=== PATIENT | female | born 1955 | race Caucasian/White ===

== ENCOUNTER → 2024-01-04 08:36 | Outpatient (REF) | payer MEDICARE, SELFPAY | LOC: WOUND 08:36 | PROVIDERS: ATTENDING PHYSICIAN Surgery; FAMILY PHYSICIAN Family Medicine | DX: T81.31XA Disruption of external operation (surgical) wound, not elsewhere classified, initial encounter (principal); S11.90XA Unspecified open wound of unspecified part of neck, initial encounter; Y83.8 Other surgical procedures as the cause of abnormal reaction of the patient, or of later complication, without mention of misadventure at the time of the procedure; X58.XXXA Exposure to other specified factors, initial encounter | CPT/HCPCS: 99203 ==

== ENCOUNTER 2024-01-08 06:29 | Inpatient (IN) | payer MEDICARE, SELFPAY ==
[2024-01-08] VITALS (13 sets, daily range): BP systolic 0–157; BP diastolic 71–96; BMI 31.7
[2024-01-08] MEDS: NORMOSOL-R 1000 IV (09:32)
--- NOTE | 2024-01-08 11:14 | W.SUR.PREOP ---
Pre-Operative Surgical Note
-
I have examined this patient prior to the performance of the scheduled procedure.
The patient's condition is unchanged from the time of the current History and
Physical and the patient is able to undergo the scheduled procedure.
[2024-01-08] MEDS: DILAUDID 0.25 MG IV (13:54)
--- NOTE | 2024-01-08 14:52 | CON.ID ---
Consultation
-
Date/Time Consultation Requested: 01/08/2024 1450
Date/Time Consultation Performed: 01/08/2024 1455
Requesting Provider: Dr. Yuliet Ferrer
Performing Provider: Dr. Magaly Pitt
Reason for Consultation: Cervical fusion wound dehiscence with exposed HW
Chief Complaint / Past History
Chief Complaint
Wound dehiscence.
History of Present Illness
68 year old female with herniated disc who underwent C3/4, C4/5, C/6 posterior cervical laminectomy fusion with hardware about 6 weeks ago at [place]. About 2 weeks ago, she felt a lump at the back of her neck. No pain. On Sunday12/28/23, the
incision opened with about 30 cc bloody drainage. The opening was about pea-size. She was immediately placed on Bactrim. The site continued to drain bloody fluid. The [facility] who packed the wound and referred her
to Plastics for closure. Today she was electively admitted and underwent debridement followed by muscle flap coverage. Per Dr. Ferrer, hardware was exposed at wound base; no pus or necrosis. She has been on Bactrim until yesterday. No fevers or
chills. She feels well overall.
Past History
Past Medical History: None
Additional Past Surgical History:
left TKR
cataract surgery
Allergy History:
No Known Allergies Allergy (Verified 01/08/24 09:15)
Medications Reviewed: Yes
Current Antibiotics:
cefazolin
Social History
Tobacco: Non-Smoker
Alcohol: None
Drug: None
Employment: Retired (OR nurse)
Family History
Family History: Not Pertinent
Review of Systems
Review of Systems
General: Negative Fever, Chills or Change in Appetite
HEENT: Negative Sinus Problems, Headache or Pharyngitis
Cardiovascular: Negative Chest Pain or Dyspnea
Respiratory: Negative Cough
Gasteroenterology: Negative Nausea or Vomiting
Genital / Urological: Negative Dysuria or Flank Pain
Endocrine: Negative Weakness or Fatigue
Skin / Hair / Nails: Negative Rash
Neurological: Negative Headache or Dizziness
All systems: All other systems were reviewed and were negative
Vital Signs
Temp Pulse Resp BP Pulse Ox
97.6 F 79 15 140/81 91
01/08/24 13:25 01/08/24 14:45 01/08/24 14:45 01/08/24 14:30 01/08/24 14:45
Physical Exam
Physical Exam
Constitutional: No Acute Distress and Comfortable
Eyes: No Conjunctival Hemorrhage and Sclera Anicteric
Cardiovascular: Regular Rate and S1/S2
Pulmonary: Clear
Gastrointestinal: Soft and Non Tender
Extremities: Negative Edema
Neurological: AO x 3
Microbiology Results
Micro:
01/08/24 12:30 Tissue Culture - Pending
Bone Gram Stain - Preliminary
01/08/24 12:30 Wound Culture - Pending
Neck Gram Stain - Preliminary
01/08/24 12:30 Anaerobic Culture - Pending
Bone
01/08/24 12:30 Anaerobic Culture - Pending
Neck
Assessment / Plan
# Recent posterior C-spine laminectomy, fusion with hardware 6 weeks ago
# Wound dehiscence 12/27/22 -> placed on Bactrim (12/27 to 01/06)
- 01/07 s/p OR with findings + HW exposed at base, no pus, no necrosis, s/p debridement and muscle flap
OR cultures pending
- Suspect OR cx will be negative as patient has been on Bactrim up until day prior to surgery
No overt infection noted .
Assuming early post-op spine hardware infection, recommend 12 weeks of abx. (4 to 6 weeks IV abx followed by po abx for total of 12 week course).
-Continue cefazolin for now.
--- NOTE | 2024-01-08 15:20 | W.IMMPOSTOP ---
Surgical Immed Post Op Note
-
Primary Surgeon: MILLICENT Ferrer MD
Assisting Surgeon:
Pre-op Diagnosis: Deep posterior cervical wound
Post-op Diagnosis: Same
Procedure Performed: Washout and debridement posterior cervical wound, bilateral paraspinous muscle flaps
Anesthesia Type: General
Specimen / Cultures: Fluid cultures, bone for culture
Estimated Blood Loss: 30 cc
Complications: None
Operative Findings: Exposed hardware
--- NOTE | 2024-01-08 15:20 | OR.RPT ---
Operative Report
Operative Report
Surgeon: MILLICENT Ferrer MD
Preoperative diagnosis: Deep cervical wound after posterior fusion, surgical wound dehiscence
Postoperative diagnosis: Same
Procedure:
1. Excisional debridement to bone, posterior neck, 10 x 5 cm
2. Bilateral paraspinous muscle flaps
Anesthesia: General
Specimens: Fluid for culture, bone for culture
Complications: None
EBL: 30 cc
Indications for procedure: Patient is a 68-year-old female who approximately 46 weeks ago underwent a posterior cervical fusion. A drain was placed and she followed a routine postop course initially. However a few weeks after her surgery she
developed a fluid collection that drained spontaneously. She was left with a draining wound. She was seen in wound care and this was packed. She was referred to me for consultation and further care. She denies fever and no evidence of purulence
at the time. A draining sinus was evident but there was no clearly exposed hardware at the time. A plan was made for operative debridement and flap closure to prevent infection of the underlying hardware. Conversation was had that the hardware
may already be seeded due to the wound dehiscence. IV antibiotics may be required following surgery. She understood these risks and desired to proceed. Risks of my surgery include further scar, hematoma, seroma, recurrent infection, need for
repeat procedure.
Procedure in detail: Patient was identified in the preoperative area and the surgical site was confirmed to be the posterior neck. All questions were answered and consents were confirmed. Patient was taken back to the operating room and placed
prone on the table. Appropriate precautions were taken to protect the patient by anesthesia. The patient's neck was then prepped and draped using Betadine solution in the usual sterile fashion. Timeout for patient safety was performed was
confirmed that bilateral SCDs were in place and preoperative antibiotics have been administered. Procedure began with the injection 1% lidocaine with epinephrine around the prior surgical scar. A 15 blade was used to excise an elliptical pattern
around the prior scar and dehisced wound. The underlying wound was encountered and larger than the draining sinus. No purulence or necrotic debris was found however the tissues appeared edematous due to the chronic seroma. A tract following
deeper and superiorly was found to be in communication with a screw and plate. As such the wound was opened up superiorly and inferiorly to allow for full axis and debridement and irrigation. Deep cultures were taken and sent for aerobic and
anaerobic bacteria. A portion of the inferior spinous process was then resected and sent for culture as it was in the wound bed. 3 L of normal saline were then used to irrigate the wound and vancomycin powder were applied to the exposed hardware.
Following this bilateral paraspinous muscle flaps were elevated to allow for midline imbrication over the hardware. This was done with a selective fascial release superficially. A series of 0 Vicryl sutures were then placed in interrupted
[id number] fashion to allow for imbrication into the wound bed. A drain was then placed superficially and tunneled out. This was sutured in place. Superficial closure was completed by 2-0 Vicryl and Alex's fascia followed by 3-0 deep
dermal sutures. A series of 2-0 nylon's were placed in a vertical mattress fashion in the skin to allow for wound edge eversion. Patient tolerated the procedure well was performed out complication. All counts were correct at the end the case.
She was extubated and taken the PACU for further care
--- NOTE | 2024-01-08 16:56 | PTCARENOTE ---
Patient admitted from pacu post cervical wound debridement with wound closure and muscle flap secondary to a seroma.The patient received general anesthesia.EBL was 20ml.The patient rates her pain at a 2-3 out of 10.The posterior neck dressing is
intact with a scant amount of shadowing.Vital signs are stable.The patient is in her bed with the call reaves in reach.Her is at the bedside.
[2024-01-08] MEDS: TYLENOL 1000 MG PO ×2 (17:37→22:35)
[2024-01-08] MEDS: FLUSH (NSS) 2 FLUSH IV (20:57)
[2024-01-08] MEDS: ANCEF 10 IV (20:57)
[2024-01-09 03:30] VITALS: BP 107/72
[2024-01-09] MEDS: ANCEF 10 IV (03:40)
--- NOTE | 2024-01-09 04:47 | DOWNTIME ---
There was a [employer] Downtime on 01/09/2024 from 0100 to 01/09/2024 at 0439. Downtime documentation of patient's care, including medication administrations, has been reconciled in the electronic record per guidelines. Refer to the
patient's paper chart under the miscellaneous tab to see printed paper medication records and downtime forms.
[2024-01-09] MEDS: TYLENOL 1000 MG PO ×4 (06:21→22:54)
[2024-01-09 07:12] VITALS: BP 121/80
--- NOTE | 2024-01-09 07:49 | W.PN.PLAS ---
Today's Communication
-
Awaiting Cultures
ID consultation
Progress Note
Subjective Data
doing well, pain well-controlled, denies shortness of breath
Subjective: Tolerating Regular Diet and Ambulatory
Objective Data
Vital Signs
Temp Pulse Resp BP Pulse Ox
98.1 F 76 16 107/72 96
01/09/24 03:30 01/09/24 03:30 01/09/24 03:30 01/09/24 03:30 01/09/24 03:30
Intake and Output
01/08/24 01/09/24 01/10/24
06:59 06:59 06:59
Intake Total 460 / 460
Output Total 20 / 20
Balance 440 / 440
Intake:
Oral fluids 360 / 360
IV fluids (Total) 100 / 100
Normosol 100 / 100
IV piggybacks 0 / 0
Output:
Drain Output (Total) 20 / 20
Neck Cristóbal-Allen 20 / 20
Other:
Number of approximated MODERATE 1
amounts of urine
physical exam:
No acute distress
No increased work of breathing
Posterior cervical incision intact with sutures in place and dressing clean and dry
MIGUEL drain serosanguineous with appropriate output
Moving all extremities
Microbiology Results
01/08/24 12:30 Bone Gram Stain - Preliminary
01/08/24 12:30 Neck Gram Stain - Preliminary
Assessment / Plan
status post posterior cervical wound debridement with paraspinous muscle flaps
ID following, cultures negative to date
Discharge following ID recommendations for IV antibiotics
--- NOTE | 2024-01-09 09:39 | W.PN.ID1 ---
Date of Service
Date of Service: January 09, 2024
Today's Communication
Anticipate dc tomorrow if home IV abx set up.
Assessment / Plan
# Recent posterior C-spine laminectomy, fusion with hardware 6 weeks ago.
# Wound dehiscence 12/27/22 ( week 5 post-op) -> placed on Bactrim (12/27 to 01/06)
- 01/07 s/p OR with findings + HW exposed at base, no pus, no necrosis, s/p debridement and muscle flap
OR cultures negative to date, as expected as patient has been on Bactrim up until day prior to surgery
No overt infection noted .
- Assuming early post-op spine hardware infection, recommend 12 weeks of abx.
- Plan for broad-spectrum coverage with Daptomycin 500mg IV q24 and cefepime 2g IV q`12 x 6 weeks followed by another 6 weeks pf po abx, then stop. Pt agreeable to plan.
Infusion sheet submitted to registered nurse hh case manager.
- Ordered PICC.
- Check CK, CBC, CMP in am.
-Anticipate dc home home tomorrow if home IV abx set up.
Chief Complaint
-: Other (Wound dehiscence)
Subjective / Review of Systems
No complaints.
Vital Signs / Physical Exam
Vital Signs
Vital Signs
Temp Pulse Resp BP Pulse Ox
98.6 F 84 17 121/80 97
01/09/24 07:12 01/09/24 07:12 01/09/24 07:12 01/09/24 07:12 01/09/24 07:12
Physical Exam
Constitutional: No Acute Distress and Comfortable
Eyes: Sclera Anicteric
Cardiovascular: Regular Rate and S1/S2
Pulmonary: Clear
Extremities: Negative Edema
Neurological: AO x 3
Objective Data
Lab Data
C-Reactive Protein 19.80 mg/L (0.0-10.00) H 01/09/24 04:46
Most recent labs reviewed.
Micro Results:
01/09/24 09:14 Nasal Screen MRSA (PCR) - Pending
Nose
01/08/24 12:30 Wound Culture - Preliminary
Neck No growth
Gram Stain - Preliminary
01/08/24 12:30 Anaerobic Culture - Preliminary
Bone Culture pending. Anaerobic cultures are examined after 3
days incubation. Additional information to follow.
01/08/24 12:30 Tissue Culture - Preliminary
Bone No Growth After 18-24 Hours
Gram Stain - Preliminary
01/08/24 12:30 Anaerobic Culture - Preliminary
Neck Culture pending. Anaerobic cultures are examined after 3
days incubation. Additional information to follow.
[2024-01-09] MEDS: CUBICIN 10 MG IV (10:22)
[2024-01-09] MEDS: STERILE WATER FOR INJECTION 10 ML IV ×2 (10:22→22:55)
[2024-01-09] MEDS: MAXIPIME 2000 MG IV ×2 (10:22→22:55)
[2024-01-09 11:19] VITALS: BP 131/89
[2024-01-09 15:32] VITALS: BP 113/68
--- NOTE | 2024-01-09 16:17 | CM ---
Reviewed chart, received script for IV ABX. Patient has Medicare. 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
Faxed all paperwork to Anne at [facility].
Plan: Case management will continue to follow and assist with discharge planning. Home tomorrow with IV ABX.
[2024-01-09] MEDS: VALIUM 5 MG PO (17:25)
[2024-01-09] MEDS: FLUSH (NSS) 2 FLUSH IV (22:55)
[2024-01-09 23:03] VITALS: BP 116/67
[2024-01-10 04:59] LABS: % Basophils 0.4 % (0-2); % Eosinophils 0.4 % (0-6); % Immature Granulocytes 0.5 % (0-0.5); % Lymphocytes 23.4 % (20.5-51.1); % Monocytes 6.6 % (1.7-9.3); % Neutrophils 68.7 % (42.2-75.2); Absolute Immature Granulocytes 0.1 10^3/uL (0-0.05); Absolute Lymphocytes 2.3 10^3/uL (1.2-3.4); Absolute Monocytes 0.7 10^3/uL (0.1-0.6); Absolute Neutrophils 6.8 10^3/uL (1.4-6.5); Hemoglobin 11.4 g/dL (12.0-16.0); Mean Corp Hgb Conc. 33.5 g/dL (33.0-37.0); Mean Corpuscular Hgb 31.5 pg (27.0-31.0); Mean Corpuscular Volume 93.9 fL (81.0-99.0); Mean Platelet Volume 9.5 fL (7.4-10.4); Nucleated Red Blood Cells % 0 %; Platelet Count 220 10^3/uL (130-400); Red Blood Cell Count 3.62 10^6/uL (4.20-5.40); Red Cell Dist. Width 13.1 % (11.5-14.5); White Blood Cell Count 9.9 10^3/uL (4.8-10.8)
[2024-01-10 05:16] LABS: ALT (SGPT) 15 U/L (0-35); AST (SGOT) 22 U/L (14-36); Albumin 4.1 g/dl (3.5-5.0); Alkaline Phosphatase 53 U/L (38-126); Blood Urea Nitrogen 14 mg/dl (7-17); Calcium 9.2 mg/dl (8.4-10.2); Carbon Dioxide 29 mmol/L (22-30); Chloride 102 mmol/L (98-107); Creatine Phosphokinase 72 U/L (30-135); Estimated Creatinine Clearance 92 ml/min; Glucose 90 mg/dl (70-99); Potassium 4.2 mmol/L (3.5-5.1); Sodium 136 mmol/L (135-145); Total Bilirubin 0.3 mg/dl (0.2-1.3); Total Protein 6.6 g/dl (6.3-8.2); eGFR > 60.00
[2024-01-10] MEDS: TYLENOL 1000 MG PO ×2 (05:52→11:58)
[2024-01-10] MEDS: VALIUM 5 MG PO (05:52)
[2024-01-10 07:07] VITALS: BP 124/76
--- NOTE | 2024-01-10 09:51 | CM ---
Addendum entered by HENRY Kahn 01/10/24 10:17:
Referral made to [facility].
Original Note:
Placed a call to Anne at [facility] who confirmed that she received referral and that all paperwork has been received. She is connecting with patient's insurance to check benefits.
Anne stated that patient is unable to refuse VN services as if they do not come, their infusion services will cost a copay for each visit. She stated that she will talk to patient. Will send referral to [facility] as patient initially agreed to that
agency yesterday.
Plan: Case management will continue to follow and assist with discharge planning. Home with home infusion and VN services.
--- NOTE | 2024-01-10 09:58 | W.PN.ID1 ---
Date of Service
Date of Service: January 10, 2024
Today's Communication
-Can dc home after am doses of IV abx's and if home IV abx's all set up.
-Follow-up with me in 3 to 4 weeks.
Assessment / Plan
# Recent posterior C-spine laminectomy, fusion with hardware 6 weeks ago.
# Wound dehiscence 12/27/22 ( week 5 post-op) -> was on Bactrim (12/27 to 01/06)
- 01/07 s/p OR with findings + HW exposed at base, no pus, no necrosis, s/p debridement and muscle flap
OR cultures negative to date, as expected since she has been on Bactrim up until day prior to surgery
No overt infection noted .
- Assuming early post-op spine hardware infection, recommend 12 weeks of abx.
-Continue Daptomycin 500mg IV q24 and cefepime 2g IV q`12 x 6 weeks through 02/19/24, followed by another 6 weeks of po abx, then stop.
- Check Weekly CK, CBC, CMP in am.
-Can dc home after am doses of IV abx's and if home IV abx's all set up.
-Follow-up with me in 3 to 4 weeks.
Chief Complaint
-: Other (Wound dehiscence)
Subjective / Review of Systems
Feels well. Looking forward to going home.
Vital Signs / Physical Exam
Vital Signs
Vital Signs
Temp Pulse Resp BP Pulse Ox
98.1 F 80 17 124/76 96
01/10/24 07:07 01/10/24 07:07 01/10/24 07:07 01/10/24 07:07 01/10/24 07:07
Physical Exam
Constitutional: No Acute Distress and Comfortable
Gastrointestinal: Soft, Non Tender and Non Distended
Wound: Other (posterior neck MIGUEL drain serosanguinous output)
Neurological: AO x 3
Lines: PICC (RUE)
Objective Data
Lab Data
Lab Results
01/10/24 04:32
01/10/24 04:32
Estimated Creat Clear 92 ml/min 01/10/24 04:32
Total Bilirubin 0.3 mg/dl (0.2-1.3) 01/10/24 04:32
AST 22 U/L (14-36) 01/10/24 04:32
ALT 15 U/L (0-35) 01/10/24 04:32
Alkaline Phosphatase 53 U/L (38-126) 01/10/24 04:32
C-Reactive Protein 19.80 mg/L (0.0-10.00) H 01/09/24 04:46
Most recent labs reviewed.
Micro Results:
01/09/24 09:14 Nasal Screen MRSA (PCR) - Final
Nose MRSA not detected - performed by PCR methodology.
01/08/24 12:30 Wound Culture - Preliminary
Neck No growth
Gram Stain - Preliminary
01/08/24 12:30 Anaerobic Culture - Preliminary
Bone Culture pending. Anaerobic cultures are examined after 3
days incubation. Additional information to follow.
01/08/24 12:30 Tissue Culture - Preliminary
Bone No Growth After 18-24 Hours
Gram Stain - Preliminary
01/08/24 12:30 Anaerobic Culture - Preliminary
Neck Culture pending. Anaerobic cultures are examined after 3
days incubation. Additional information to follow.
[2024-01-10] MEDS: FLUSH (NSS) 3 FLUSH IV (10:18)
[2024-01-10] MEDS: CUBICIN 10 MG IV (10:18)
[2024-01-10] MEDS: STERILE WATER FOR INJECTION 10 ML IV (10:19)
[2024-01-10] MEDS: MAXIPIME 2000 MG IV (10:20)
--- NOTE | 2024-01-10 13:21 | W.DCSUMMARY ---
Discharge Summary
Discharge Data
Date of Admission: 01/08/24
Date of Discharge: 01/10/24
-
Pending Results: No
Hospital Course
Admitted for PICC and IV abx after posterior cervical wound debridement and reconstruction.
ID consulted.
Routine postop course.
Discharge Plan
-
Patient Disposition: Home (Routine Discharge)
Discharge Diagnosis/Procedures: Posterior deep cervical wound
Condition: Good
Diet: No restrictions
Activity: No strenuous activity
Driving Restrictions: As prior to admission
Bathing Restrictions: OK to Shower
Other Services: VN
Referrals:
UNKNOWN,NO INTERVIEW [Family Provider] -
Prescriptions:
Continued
acetaminophen 650 mg Tablet Extended Release
1,300 mg PO Q8H PRN (Reason: Pain)
Liquid Collagen
1 dose PO DAILY
Discharge Orders:
Discharge Patient (As Directed); Ordered 01/10/24
Ordered By: John Ferrer
Discharge Date and Time
Print Language: INDIAN
--- NOTE | 2024-01-10 13:24 | W.PN.PLAS ---
Today's Communication
-
discharged home with VNA
Progress Note
Subjective Data
doing well, ready to go home
Subjective: Tolerating Regular Diet and Ambulatory
Objective Data
Vital Signs
Temp Pulse Resp BP Pulse Ox
98.1 F 80 17 124/76 96
01/10/24 07:07 01/10/24 07:07 01/10/24 07:07 01/10/24 07:07 01/10/24 07:07
Intake and Output
01/09/24 01/10/24 01/11/24
06:59 06:59 06:59
Intake Total 460 / 460 1800 / 1800
Output Total
Balance 440 / 440 1790 / 1790
Intake:
Oral fluids 360 / 360 1800 / 1800
IV fluids (Total) 100 / 100
Normosol 100 / 100
IV piggybacks 0 / 0
Output:
Drain Output (Total)
Neck Cristóbal-Allen
Other:
Number of approximated MODERATE 1 2
amounts of urine
physical exam:
No acute distress
No increased work of breathing
Ambulatory moving all extremities
Incision intact with sutures in place
MIGUEL drain serosanguineous with appropriate output
Lab Results
01/10/24 04:32
01/10/24 04:32
Microbiology Results
01/08/24 12:30 Bone Tissue Culture - Preliminary
No Growth After 48 Hours
01/08/24 12:30 Bone Gram Stain - Preliminary
01/08/24 12:30 Neck Wound Culture - Preliminary
No growth
01/08/24 12:30 Neck Gram Stain - Preliminary
01/09/24 09:14 Nose Nasal Screen MRSA (PCR) - Final
MRSA not detected - performed by PCR methodology.
Assessment / Plan
status post posterior cervical wound debridement with paraspinous muscle flaps
ID following, cultures negative to date
Discharge following ID recommendations for IV antibiotics
[2024-01-10 14:15] VITALS: BP 130/87
== END 2024-01-10 15:14 | disposition home health service (06) | DRG 908 ==
LOC: 2 SOUTH 06:29
PROVIDERS: Radiology Diagnostic Radiology; ADMITTING PHYSICIAN Surgery Plastic and Reconstructive Surgery; CONSULT PHYSICIAN Internal Medicine Infectious Disease
PROC: 0KX30ZZ Transfer Left Neck Muscle, Open Approach (ICD-10-PCS; 2024-01-08)
PROC: 0PB30ZZ Excision of Cervical Vertebra, Open Approach (ICD-10-PCS; 2024-01-08)
PROC: 7W01X1Z Osteopathic Treatment of Cervical Region using Fascial Release (ICD-10-PCS; 2024-01-08)
PROC: 0KX Muscles, Transfer (ICD-10-PCS; 2024-01-08)
PROC: 02HV33Z Insertion of Infusion Device into Superior Vena Cava, Percutaneous Approach (ICD-10-PCS; 2024-01-09)
DX: T81.31XA Disruption of external operation (surgical) wound, not elsewhere classified, initial encounter (principal); T84.63XA Infection and inflammatory reaction due to internal fixation device of spine, initial encounter; Y83.8 Other surgical procedures as the cause of abnormal reaction of the patient, or of later complication, without mention of misadventure at the time of the procedure; Y79.2 Prosthetic and other implants, materials and accessory orthopedic devices associated with adverse incidents; Y92.9 Unspecified place or not applicable; Z96.652 Presence of left artificial knee joint; Z79.82 Long term (current) use of aspirin; Z79.891 Long term (current) use of opiate analgesic; Z98.1 Arthrodesis status
CPT/HCPCS: 71045; 80053; 82550; 85025; 86140; 87070; 87075; 87147; 87176; 87205; 87641; C1729; J0878

== ENCOUNTER → 2025-06-04 10:10 | Outpatient (REF) | payer MEDICARE, OTHER, SELFPAY ==
[2025-06-04 10:42] LABS: Hematocrit 39.1 % (37.0-47.0); Hemoglobin 13.0 g/dL (12.0-16.0); Mean Corp Hgb Conc. 33.2 g/dL (33.0-37.0); Mean Corpuscular Volume 93.8 fL (81.0-99.0); Nucleated Red Blood Cells % 0 %; Platelet Count 243 10^3/uL (130-400); Red Cell Dist. Width 12.2 % (11.5-14.5)
[2025-06-04 11:22] LABS: Blood Urea Nitrogen 17 mg/dl (7-17); Calcium 10.0 mg/dl (8.4-10.2); Carbon Dioxide 28 mmol/L (22-30); Chloride 102 mmol/L (98-107); Glucose 90 mg/dl (70-99); Potassium 5.2 mmol/L (3.5-5.1); Sodium 137 mmol/L (135-145); eGFR > 60.00
== END ==
LOC: RCS 10:10
PROVIDERS: ATTENDING PHYSICIAN Specialist; FAMILY PHYSICIAN Family Medicine
DX: Z01.818 Encounter for other preprocedural examination (principal)
CPT/HCPCS: 36415; 80048; 85025; 93005